=== PATIENT | male | born 1975 | race Caucasian/White ===

== ENCOUNTER → 2018-01-02 07:45 | Outpatient (CLI) | payer OTHER, SELFPAY ==
--- NOTE | 2018-01-02 08:15 | RAD_ITS ---
STUDY: ESOPHAGRAM REASON FOR EXAM: Male, 42 years old. Sore throat, irritation for 11 to 12 weeks, smoking history. FLUOROSCOPY TIME (if supplied): (0:18) minutes/seconds TECHNIQUE: An esophagram was performed. I was not present for the examination. A total of 10 images are performed. COMPARISON: None. FINDINGS: There may be narrowing within the proximal esophagus at C6-C7. The remainder of the esophagus appears grossly unremarkable. The visualized portions of the stomach are grossly unremarkable. RAD/Esophagus Only IMPRESSION: Question esophageal narrowing within the cervical esophagus. Please note that I was not the performing radiologist, and these images are best interpreted by the radiologist performing the examination, as there is real-time information on fluoroscopy that can help in the interpretation of this examination. Please correlate with the radiologist who performed this examination. This patient may benefit from upper endoscopy for further evaluation. Electronically Signed: Clarence Medeiros DO at 8:02 EDT Tel , Service support ,
== END ==
LOC: RAD 07:48
PROVIDERS: Family Provider Family Medicine; PCP Family Medicine; Visit Provider Otolaryngology
DX: R13.10 Dysphagia, unspecified (principal)
CPT/HCPCS: 74220

== ENCOUNTER 2018-02-20 10:12 | Day surgery (SDC) | payer OTHER, SELFPAY ==
[2018-02-20 10:37] VITALS: BP 139/95; PULSE 67; RESP 18; TEMP 36.6; O2SAT 97; BMI 34.5
--- NOTE | 2018-02-20 11:38 | PCM.OPRPT ---
Problem List (1) Gastro-esophageal reflux disease without esophagitis Status: Acute Report of Operation Date of Procedure: 02/20/18 Pre-Operative Diagnosis: k21.9 gastroesophageal reflux disease without esophagitis Post-Operative Diagnosis: Same Surgery/Procedure Performed:: 39257, [id number] esophagogastroduodenoscopy with 48 hour pH probe Type of Anesthesia:: MAC Description of Procedure: Patient was brought into the endoscopy suite placed in the left lateral decubitus position. Back of his throat was sprayed with benzocaine spray. A bite block was placed. He was given graded anesthesia. The scope was inserted into the back of the throat and directed down through the esophagus into the stomach and into the duodenum without difficulty operative findings: 1. Duodenum: Normal appearance no mass lesions no ulcerations no signs of any bleeding. 2. Stomach: Normal appearance no mass lesions minimal antral gastritis was identified. Retroflexion did not show a hiatal hernia. No signs of bleeding. 3. Esophagus: Z line was at 40 cm appeared normal no signs of bleeding no signs of mass lesions. The scope was withdrawn. PH probe was marked at 34 cm placed in the back of the throat directed down through to the appropriate markings. Proper suction was applied. PH probe was deployed. The scope was reinserted in the back of throat and down the esophagus and a photograph was obtained showing the pH probe to be properly attached to the lateral sidewall of the esophagus. Scope was withdrawn and the patient tolerated the procedure well. - Admit VTE Documentation VTE Present on Admission: No VTE Mechan Device Prophylaxis: None VTE Pharm Prophylaxis ordered?: No Reason prophylaxis not ordered:: Treatment Not Indicated
[2018-02-20 11:43] VITALS: BP 104/91; BP 139/95; PULSE 74; RESP 16; TEMP 36.1; O2SAT 94
[2018-02-20 11:49] VITALS: BP 124/85; BP 139/95; PULSE 71; RESP 16; O2SAT 95
[2018-02-20 11:54] VITALS: BP 114/86; BP 139/95; PULSE 71; RESP 16; O2SAT 96
[2018-02-20 11:59] VITALS: BP 125/83; BP 139/95; PULSE 70; RESP 16; TEMP 36.3; O2SAT 97
[2018-02-20 12:21] VITALS: BP 139/95
== END 2018-02-20 12:22 | disposition home or self-care (01) ==
LOC: EN 10:12 → AC 10:13
PROVIDERS: Family Provider Family Medicine; PCP Family Medicine; Visit Provider Surgery
PROC: (CPT 43235; principal; 2018-02-20 11:00)
DX: K21.9 Gastro-esophageal reflux disease without esophagitis (principal); E78.5 Hyperlipidemia, unspecified; Z87.891 Personal history of nicotine dependence
CPT/HCPCS: 43235; J7120

== ENCOUNTER → 2022-02-26 | Outpatient (CLI) | payer OTHER, SELFPAY ==
[2022-02-26 18:13] LABS: Absolute Lymphocyte Count 3.14 X10^3/uL (0.83-4.51); Absolute Neutrophil Count 4.9 X10^3/uL (2.0-7.7); Basophil# 0.08 X10^3/uL; Basophil% 0.9 % (0-1); Eosinophil# 0.18 X10^3/uL; Hematocrit 43.3 % (40-54); Hemoglobin 14.8 g/dL (13.0-16.5); Lymphocyte # 3.14 X10^3/ul (0.83-4.51); Mean Corp Hgb Conc 34.2 g/dL (32-36); Mean Corpuscular Volume 87.8 fL (80-94); Mean Platelet Vol. 9.9 fl (6.2-12.0); Monocyte# 0.69 X10^3/uL; Monocyte% 7.7 % (0-10); NRBC Flagged by Analyzer 0 % (0-5); Neutrophil # 4.86 X10^3/uL (2.7-7.7); Neutrophil % 54.1 % (47-70); Platelet Count 340 K/mm3 (150-450); RBC Distribution Width SD 41.7 fl (35.1-43.9); Red Blood Count 4.93 M/mm3 (4.6-6.2)
[2022-02-26 18:30] LABS: Erythrocyte Sedimentation Rate 13 mm/hr (0-20)
[2022-02-26 19:16] LABS: ALB/GLOB Ratio 1.2 RATIO (0.9-2.4); AST(SGOT) 23 U/L (15-37); Alanine Aminotransfer ALT/SGPT 49 U/L (16-61); Albumin, Serum 4.2 g/dL (3.2-5.0); Alkaline Phosphatase 74 U/L (45-117); Anion Gap 7 (5-15); BUN 15 mg/dL (7-18); BUN/Creat Ratio 15.5 RATIO (10-20); CPK Total, Creatine Kinase 214 U/L (39-308); CRP < 2.90 mg/L (0.0-3.0); Calcium,Total 9.2 mg/dL (8.5-10.1); Chloride 103 mmol/L (98-107); Creatinine, Serum 0.97 mg/dL (0.70-1.30); EST Glomerular Filtration Rate 88 mL/min (>60); Est Glom Filt Rate - Afr Amer 106 mL/min (>60); GGTP 18 U/L (15-85); Globulin 3.4 g/dL (2.2-4.2); Glucose 92 mg/dL (74-106); Protein, Total 7.6 g/dL (6.4-8.2); Rheumatoid Factor < 10.0 IU/mL (<15); Sodium Level 138 mmol/L (136-145)
[2022-02-27 08:31] LABS: Hepatitis B Surface Antibody Non-Reactive; Hepatitis B Surface Antigen Non-Reactive (Nonreactive); Hepatitis C Antibody Non-Reactive (Nonreactive)
[2022-03-04 18:03] LABS: Aldolase 4.8 U/L (3.3-10.3); CCP IgG Antibodies 5 units (0-19)
== END | disposition home or self-care (01) ==
LOC: MTLAB 14:24
PROVIDERS: PCP Family Medicine; Referring Provider Internal Medicine Rheumatology; Visit Provider Internal Medicine Rheumatology
DX: M06.4 Inflammatory polyarthropathy (principal); K76.0 Fatty (change of) liver, not elsewhere classified; M21.41 Flat foot [pes planus] (acquired), right foot; K21.9 Gastro-esophageal reflux disease without esophagitis; E78.5 Hyperlipidemia, unspecified; G47.33 Obstructive sleep apnea (adult) (pediatric)
CPT/HCPCS: 36415; 80053; 82085; 82550; 82977; 85025; 85652; 86140; 86200; 86431; 86706; 86803; 87340

== ENCOUNTER → 2022-05-16 | Outpatient (CLI) | payer OTHER, SELFPAY ==
[2022-05-16 18:01] LABS: Absolute Neutrophil Count 4.5 X10^3/uL (2.0-7.7); Basophil# 0.07 X10^3/uL; Basophil% 0.8 % (0-1); Eosinophil# 0.25 X10^3/uL; Eosinophils% 2.9 % (0-5); Hematocrit 40.9 % (40-54); Hemoglobin 13.7 g/dL (13.0-16.5); Lymphocyte % 37.2 % (19-41); Mean Corp Hgb Conc 33.5 g/dL (32-36); Mean Corpuscular Hgb 29.3 pg (27.0-32.0); Mean Corpuscular Volume 87.4 fL (80-94); Mean Platelet Vol. 9.9 fl (6.2-12.0); Monocyte# 0.53 X10^3/uL; Monocyte% 6.2 % (0-10); NRBC Flagged by Analyzer 0 % (0-5); Neutrophil # 4.53 X10^3/uL (2.7-7.7); Neutrophil % 52.7 % (47-70); Platelet Count 316 K/mm3 (150-450); RBC Distribution Width CV 13.2 % (11.6-14.6); RBC Distribution Width SD 41.2 fl (35.1-43.9); Red Blood Count 4.68 M/mm3 (4.6-6.2); White Blood Count 8.6 K/mm3 (4.4-11.0)
[2022-05-16 18:15] LABS: ALB/GLOB Ratio 1.2 RATIO (0.9-2.4); AST(SGOT) 28 U/L (15-37); Alanine Aminotransfer ALT/SGPT 61 U/L (16-61); Albumin, Serum 3.8 g/dL (3.2-5.0); Alkaline Phosphatase 73 U/L (45-117); Anion Gap 5 (5-15); BUN 13 mg/dL (7-18); BUN/Creat Ratio 12.5 RATIO (10-20); Calcium,Total 8.9 mg/dL (8.5-10.1); Chloride 107 mmol/L (98-107); Creatinine, Serum 1.04 mg/dL (0.70-1.30); EST Glomerular Filtration Rate 81 mL/min (>60); Est Glom Filt Rate - Afr Amer 98 mL/min (>60); Globulin 3.2 g/dL (2.2-4.2); Glucose 99 mg/dL (74-106); Potassium 3.8 mmol/L (3.5-5.1); Sodium Level 138 mmol/L (136-145)
== END | disposition home or self-care (01) ==
LOC: MTLAB 15:24
PROVIDERS: PCP Family Medicine; Referring Provider Internal Medicine Rheumatology; Visit Provider Internal Medicine Rheumatology
DX: M06.4 Inflammatory polyarthropathy (principal); K76.0 Fatty (change of) liver, not elsewhere classified; E78.5 Hyperlipidemia, unspecified
CPT/HCPCS: 36415; 80053; 85025

== ENCOUNTER → 2022-08-16 | Outpatient (CLI) | payer OTHER, SELFPAY ==
[2022-08-16 17:37] LABS: Absolute Lymphocyte Count 2.78 X10^3/uL (0.83-4.51); Absolute Neutrophil Count 4.7 X10^3/uL (2.0-7.7); Basophil# 0.07 X10^3/uL; Basophil% 0.8 % (0-1); Eosinophil# 0.19 X10^3/uL; Eosinophils% 2.2 % (0-5); Hematocrit 44.1 % (40-54); Hemoglobin 14.2 g/dL (13.0-16.5); Lymphocyte # 2.78 X10^3/ul (0.83-4.51); Lymphocyte % 32.8 % (19-41); Mean Corp Hgb Conc 32.2 g/dL (32-36); Mean Corpuscular Hgb 29.7 pg (27.0-32.0); Mean Corpuscular Volume 92.3 fL (80-94); Mean Platelet Vol. 10.1 fl (6.2-12.0); Monocyte# 0.75 X10^3/uL; Monocyte% 8.8 % (0-10); NRBC Flagged by Analyzer 0 % (0-5); Neutrophil # 4.66 X10^3/uL (2.7-7.7); Platelet Count 313 K/mm3 (150-450); RBC Distribution Width CV 13.6 % (11.6-14.6); Red Blood Count 4.78 M/mm3 (4.6-6.2); White Blood Count 8.5 K/mm3 (4.4-11.0)
[2022-08-16 18:09] LABS: ALB/GLOB Ratio 1.2 RATIO (0.9-2.4); AST(SGOT) 16 U/L (15-37); Alanine Aminotransfer ALT/SGPT 37 U/L (16-61); Albumin, Serum 3.9 g/dL (3.2-5.0); Alkaline Phosphatase 75 U/L (45-117); Anion Gap 7 (5-15); BUN 15 mg/dL (7-18); BUN/Creat Ratio 16.1 RATIO (10-20); Calcium,Total 8.8 mg/dL (8.5-10.1); Chloride 107 mmol/L (98-107); Creatinine, Serum 0.93 mg/dL (0.70-1.30); EST Glomerular Filtration Rate 92 mL/min (>60); Est Glom Filt Rate - Afr Amer 111 mL/min (>60); Globulin 3.2 g/dL (2.2-4.2); Glucose 76 mg/dL (74-106); Protein, Total 7.1 g/dL (6.4-8.2); Sodium Level 141 mmol/L (136-145)
== END | disposition home or self-care (01) ==
LOC: MTLAB 14:58
PROVIDERS: PCP Family Medicine; Referring Provider Internal Medicine Rheumatology; Visit Provider Internal Medicine Rheumatology
DX: M06.4 Inflammatory polyarthropathy (principal); K76.0 Fatty (change of) liver, not elsewhere classified; Z79.899 Other long term (current) drug therapy
CPT/HCPCS: 36415; 80053; 85025

== ENCOUNTER → 2022-10-10 | Outpatient (CLI) | payer OTHER, SELFPAY ==
[2022-10-10 18:12] LABS: Absolute Neutrophil Count 4.3 X10^3/uL (2.0-7.7); Basophil# 0.07 X10^3/uL; Basophil% 0.9 % (0-1); Eosinophil# 0.16 X10^3/uL; Hematocrit 41.4 % (40-54); Hemoglobin 13.4 g/dL (13.0-16.5); Lymphocyte % 33.3 % (19-41); Mean Corp Hgb Conc 32.4 g/dL (32-36); Mean Corpuscular Hgb 29.6 pg (27.0-32.0); Mean Corpuscular Volume 91.6 fL (80-94); Mean Platelet Vol. 9.9 fl (6.2-12.0); Monocyte# 0.63 X10^3/uL; Monocyte% 8.1 % (0-10); NRBC Flagged by Analyzer 0 % (0-5); Neutrophil # 4.32 X10^3/uL (2.7-7.7); Neutrophil % 55.3 % (47-70); Platelet Count 341 K/mm3 (150-450); RBC Distribution Width CV 13.8 % (11.6-14.6); RBC Distribution Width SD 45.8 fl (35.1-43.9); Red Blood Count 4.52 M/mm3 (4.6-6.2); White Blood Count 7.8 K/mm3 (4.4-11.0)
[2022-10-10 18:47] LABS: ALB/GLOB Ratio 1.1 RATIO (0.9-2.4); AST(SGOT) 25 U/L (15-37); Alanine Aminotransfer ALT/SGPT 51 U/L (16-61); Albumin, Serum 3.9 g/dL (3.2-5.0); Alkaline Phosphatase 73 U/L (45-117); Anion Gap 6 (5-15); BUN 16 mg/dL (7-18); BUN/Creat Ratio 15.7 RATIO (10-20); Calcium,Total 8.8 mg/dL (8.5-10.1); Chloride 107 mmol/L (98-107); Creatinine, Serum 1.02 mg/dL (0.70-1.30); EST Glomerular Filtration Rate 83 mL/min (>60); Est Glom Filt Rate - Afr Amer 100 mL/min (>60); Globulin 3.4 g/dL (2.2-4.2); Glucose 99 mg/dL (74-106); Potassium 3.9 mmol/L (3.5-5.1); Protein, Total 7.3 g/dL (6.4-8.2); Sodium Level 140 mmol/L (136-145)
== END | disposition home or self-care (01) ==
LOC: MTLAB 15:17
PROVIDERS: PCP Family Medicine; Referring Provider Internal Medicine Rheumatology; Visit Provider Internal Medicine Rheumatology
DX: M06.4 Inflammatory polyarthropathy (principal); Z79.899 Other long term (current) drug therapy
CPT/HCPCS: 36415; 80053; 85025

== ENCOUNTER → 2022-12-06 | Outpatient (CLI) | payer OTHER, SELFPAY ==
[2022-12-06 18:09] LABS: Absolute Lymphocyte Count 2.46 X10^3/uL (0.83-4.51); Absolute Neutrophil Count 4.3 X10^3/uL (2.0-7.7); Basophil# 0.06 X10^3/uL; Basophil% 0.8 % (0-1); Eosinophils% 1.3 % (0-5); Hematocrit 41.8 % (40-54); Hemoglobin 13.5 g/dL (13.0-16.5); Lymphocyte # 2.46 X10^3/ul (0.83-4.51); Lymphocyte % 32.9 % (19-41); Mean Corp Hgb Conc 32.3 g/dL (32-36); Mean Corpuscular Hgb 30.1 pg (27.0-32.0); Mean Corpuscular Volume 93.3 fL (80-94); Monocyte# 0.49 X10^3/uL; Monocyte% 6.6 % (0-10); NRBC Flagged by Analyzer 0 % (0-5); Neutrophil # 4.34 X10^3/uL (2.7-7.7); Platelet Count 363 K/mm3 (150-450); RBC Distribution Width CV 13.6 % (11.6-14.6); RBC Distribution Width SD 45.7 fl (35.1-43.9); Red Blood Count 4.48 M/mm3 (4.6-6.2); White Blood Count 7.5 K/mm3 (4.4-11.0)
[2022-12-06 18:48] LABS: ALB/GLOB Ratio 1.2 RATIO (0.9-2.4); AST(SGOT) 23 U/L (15-37); Alanine Aminotransfer ALT/SGPT 53 U/L (16-61); Albumin, Serum 3.8 g/dL (3.2-5.0); Alkaline Phosphatase 78 U/L (45-117); Anion Gap 5 (5-15); BUN 11 mg/dL (7-18); BUN/Creat Ratio 11.5 RATIO (10-20); Calcium,Total 8.3 mg/dL (8.5-10.1); Chloride 110 mmol/L (98-107); Creatinine, Serum 0.96 mg/dL (0.70-1.30); EST Glomerular Filtration Rate 89 mL/min (>60); Est Glom Filt Rate - Afr Amer 107 mL/min (>60); Globulin 3.2 g/dL (2.2-4.2); Glucose 106 mg/dL (74-106); Potassium 3.7 mmol/L (3.5-5.1); Sodium Level 142 mmol/L (136-145)
== END | disposition home or self-care (01) ==
LOC: MTLAB 15:28
PROVIDERS: PCP Family Medicine; Referring Provider Internal Medicine Rheumatology; Visit Provider Internal Medicine Rheumatology
DX: M06.4 Inflammatory polyarthropathy (principal); Z79.899 Other long term (current) drug therapy
CPT/HCPCS: 36415; 80053; 85025

== ENCOUNTER → 2023-02-19 | Outpatient (CLI) | payer OTHER, SELFPAY ==
[2023-02-19 17:38] LABS: Absolute Lymphocyte Count 2.77 X10^3/uL (0.83-4.51); Absolute Neutrophil Count 4.2 X10^3/uL (2.0-7.7); Basophil# 0.07 X10^3/uL; Basophil% 0.9 % (0-1); Eosinophil# 0.18 X10^3/uL; Eosinophils% 2.3 % (0-5); Hematocrit 39.8 % (40-54); Lymphocyte # 2.77 X10^3/ul (0.83-4.51); Lymphocyte % 35.2 % (19-41); Mean Corp Hgb Conc 32.7 g/dL (32-36); Mean Corpuscular Hgb 29.6 pg (27.0-32.0); Mean Corpuscular Volume 90.7 fL (80-94); Mean Platelet Vol. 9.9 fl (6.2-12.0); Monocyte# 0.59 X10^3/uL; Monocyte% 7.5 % (0-10); NRBC Flagged by Analyzer 0 % (0-5); Neutrophil # 4.21 X10^3/uL (2.7-7.7); Neutrophil % 53.6 % (47-70); Platelet Count 345 K/mm3 (150-450); RBC Distribution Width CV 12.9 % (11.6-14.6); RBC Distribution Width SD 41.9 fl (35.1-43.9); Red Blood Count 4.39 M/mm3 (4.6-6.2); White Blood Count 7.9 K/mm3 (4.4-11.0)
[2023-02-19 17:58] LABS: AST(SGOT) 25 U/L (15-37); Alanine Aminotransfer ALT/SGPT 39 U/L (16-61); Albumin, Serum 3.6 g/dL (3.2-5.0); Alkaline Phosphatase 74 U/L (45-117); Anion Gap 7 (5-15); BUN 11 mg/dL (7-18); Calcium,Total 8.6 mg/dL (8.5-10.1); Chloride 109 mmol/L (98-107); Creatinine, Serum 0.92 mg/dL (0.70-1.30); EST Glomerular Filtration Rate 93 mL/min (>60); Est Glom Filt Rate - Afr Amer 113 mL/min (>60); Globulin 3.5 g/dL (2.2-4.2); Glucose 90 mg/dL (74-106); Potassium 3.6 mmol/L (3.5-5.1); Protein, Total 7.1 g/dL (6.4-8.2); Sodium Level 141 mmol/L (136-145)
== END | disposition home or self-care (01) ==
PROVIDERS: PCP Family Medicine; Referring Provider Internal Medicine Rheumatology; Visit Provider Internal Medicine Rheumatology
DX: M06.4 Inflammatory polyarthropathy (principal); Z79.899 Other long term (current) drug therapy; K76.0 Fatty (change of) liver, not elsewhere classified
CPT/HCPCS: 36415; 80053; 85025

== ENCOUNTER → 2023-08-22 | Outpatient (CLI) | payer OTHER, SELFPAY ==
--- OUTSIDE RECORDS SUMMARY | 2023-08-22 17:57 | XMS RPT_ITS | CCD ---
Author Name Unknown Address [address] [place] [address] Organization [facility] Care Team Providers Care Information Assistant Name Role Phone Coleman Banerjee DO Kaylyn Primary Care Provider Unavailable Primary Care Provider Unavailabl e Coleman Banerjee DO Kaylyn Primary Care Provider Coleman Banerjee DO Kaylyn Primary Care Provider [phone] COLEMAN BANERJEE Attending Unavailable COLEMAN BANERJEE Primary Care Unavailable Medications Current Medications Medication Drug Class(es) Dates Sig (Normalized) Sig (Original) aspirin 81 mg oral tablet (8 sources) Platelet Aggregation Inhibitor, Nonsteroidal Anti-inflammatory Drug aspirin 81 MG ora l suspension Completed/Discontinued Medications Medication Drug Class(es) Dates Sig (Normalized) Sig (Original) atomoxetine 40 mg oral capsule (5 sources) Norepinephrine Reuptake Inhibitor Start: 10-23-2022 End: 08-21-2023 take 1 capsule by mouth once daily atomoxetine (Strattera) 40 MG capsule Take 1 capsule (40 mg) by mouth daily. Swallow capsule whole; do not open. If opened accidentally, do not touch eyes; wash hands immediately (product is an eye irritant). 30 capsule 5 10/23/2022 08/21/2023 Discontinued (Therapy completed) folic acid 1 mg oral tablet (6 sources) Start: 07-21-2022 End: 08-21-2023 folic acid (Folvite) 1 MG tablet methotrexate 2.5 mg oral tablet (6 sources) Folate Analog Metabolic Inhibitor Start: 07-21-2022 End: 08-21-2023 methotrexate 2.5 MG tablet Problems Active Problems Problem Classification Problem Date Documented Date Episodic/Chronic Disorders of lipid metabolism (11 sources) Hypercholesterolemia; Translations: [Pure hypercholesterolemia, unspecified] Onset: 11-29-2019 11-29-2019 Chronic Disorders usually diagnosed in infancy, childhood, or adolescence (7 sources) Attention deficit hyperactivity disorder, predominantly inattentive type; Translations: [Other specified behavioral and emotional disorders with onset usually occurring in childhood and adolescence] Onset: 10-23-2022 Chronic Esophageal disorders (9 sources) Gastroesophageal reflux disease; Translations: [Gastro-esophageal reflux disease without esophagitis] Onset: 11-05-2015 11-05-2015 Chronic Esophageal disorders (2 sources) Esophageal disorders; Translations: [Gastro-esophageal reflux disease with esophagitis, without bleeding] Onset: 05-02-2022 Other circulatory disease (7 sources) Raynaud's phenomenon; Translations: [Raynaud's syndrome without gangrene] Onset: 11-05-2015 11-05-2015 Chronic Other connective tissue disease (1 source) Tendinitis of right elbow; Translations: [Other enthesopathies, not elsewhere classified] 08-21-2023 Episodic Other liver diseases (7 sources) Steatosis of liver; Translations: [Fatty (change of) liver, not elsewhere classified] Onset: 07-21-2014 08-07-2017 Chronic Other non-traumatic joint disorders (1 source) Pain in elbow; Translations: [Pain in right elbow] Episodic Other screening for suspected conditions (not mental disorders or infectious disease) (1 source) Patient encounter status; Translations: [Encounter for screening for malignant neoplasm of prostate] 08-21-2023 Episodic Other upper respiratory disease (1 source) Nasal congestion; Translations: [Nasal congestion] 08-21-2023 Episodic Peripheral and visceral atherosclerosis (7 sources) Peripheral vascular disease; Translations: [Peripheral vascular disease, unspecified] Onset: 08-07-2017 08-07-2017 Chronic Superficial injury; contusion (1 source) Insect bite, nonvenomous, of upper arm; Translations: [Insect bite (nonvenomous) of unspecified upper arm, initial encounter] Episodic Past or Other Problems Problem Classification Problem Date Documented Da te Episodic/Chronic Other endocrine disorders (7 sources) Hypotestosteronis m; Translations: [Endocrine disorder, unspecified] Onset: 11-05-2015 11-05-2015 Episodic Residual codes; unclassified (7 sources) Family history of cancer of colon; Translations: [Family history of malignant neoplasm of digestive organs] Onset: 11-05-2015 Resolved: 08-21-2023 11-05-2015 Episodic Residual codes; unclassified (8 sources) Chews tobacco ; Translations: [Tobacco use] Onset: 11-05-2015 11-05-2015 Episodic Residual codes; unclassified (2 sources) Tobacco use; Translations: [Tobacco use] Onset: 05-02-2022 Episodic Screening and history of mental health and substance abuse codes (7 sources) Ex-smoker; Translations: [Personal history of nicotine dependence] Onset: 11-05-2015 11-05-2015 Episodic Results Test Name Value Interpretation Reference Range Facil ity Vital Signs Date Time Vital Sign Value Performing Clinician Faci lity 08-21-2023 16:01-0500 Body height 172.7 cm Coleman Banerjee [employer] Work Phone: [facility] 08-21-2023 16:01-0500 Body mass index (BMI) [Ratio] 36.04 kg/m2 Coleman Banerjee [employer] Work Phone: [facility] 08-21-2023 16:01-0500 Body temperature 97.11 [degF] Coleman Banerjee [employer] Work Phone: [facility] 08-21-2023 16:01-0500 Body weight 107.5 kg Coleman Banerjee DO Work Phone: [facility] 08-21-2023 16:01-0500 Diastolic blood pressure 78 mm[Hg] Coleman Banerjee [employer] Work Phone: [facility] 08-21-2023 16:01-0500 Heart rate 78 /min Coleman Banerjee DO Work Phone: [facility] 08-21-2023 16:01-0500 SaO2% (BldA) [Mass fraction] 96 % Coleman Banerjee [employer] Work Phone: [facility] 08-21-2023 16:01-0500 Systolic blood pressure 112 mm[Hg] Coleman Banerjee DO Work Phone: [facility] 10-23-2022 16:06-0400 Body height 172.7 cm Coleman Banerjee [employer] Work Phone: [facility] 10-23-2022 16:06-0400 Body mass index (BMI) [Ratio] 36.8 kg/m2 Coleman Banerjee DO Work Phone: [facility] [employer] 10-23-2022 16:06-0400 Body temperature 98.01 [degF] Coleman Banerjee DO Work Phone: [facility] 10-23-2022 16:06-0400 Body weight 109.77 kg Coleman Banerjee DO Work Phone: [facility] [employer] 10-23-2022 16:06-0400 Diastolic blood pressure 81 mm[Hg] Coleman Banerjee DO Work Phone: [facility] [employer] 10-23-2022 16:06-0400 Heart rate 84 /min Coleman Banerjee DO Work Phone: [facility] [employer] 10-23-2022 16:06-0400 SaO2% (BldA) [Mass fraction] 93 % Coleman Banerjee DO Work Phone: [facility] [employer] 10-23-2022 16:06-0400 Systolic blood pressure 118 mm[Hg] Coleman Banerjee DO Work Phone: [facility] [employer] 02-17-2022 10:12-0400 Body temperature 97.3 [degF] Dom Rizo SERVICE PERSON.NURSE TECHNICIAN Work Phone: [facility] 02-17-2022 10:12-0400 Body weight 108.77 kg Dom Rizo SERVICE PERSON.NURSE TECHNICIAN Work Phone: [facility] 02-17-2022 10:12-0400 Diastolic blood pressure 86 mm[Hg] Dom Darrius SERVICE PERSON.NURSE TECHNICIAN Work Phone: [facility] 02-17-2022 10:12-0400 Heart rate 87 /min Dom Darrius SERVICE PERSON.NURSE TECHNICIAN Work Phone: [facility] 02-17-2022 10:12-0400 Respiratory rate 20 /min Dom Rizo SERVICE PERSON.NURSE TECHNICIAN Work Phone: [facility] 02-17-2022 10:12-0400 SaO2% (BldA) [Mass fraction] 98 % Dom Darrius SERVICE PERSON.NURSE TECHNICIAN Work Phone: [facility] 02-17-2022 10:12-0400 Systolic blood pressure 126 mm[Hg] Dom King ALEENANURSE TECHNICIAN Work Phone: [facility] Encounters Encounter Date Encounter Type Care Provider Facility Start: 08-21-2023 End: 08-21-2023 Patient encounter procedure Coleman Patiño Chriss DO Work Phone: [facility] Start: 08-21-2023 End: 08-21-2023 Periodic preventive med est patient 40-64yrs Coleman Patiño Chriss DO Work Phone: [facility] Procedures Date Procedure Procedure Detail Performing Clinician Start: 02-28-2021 Radex elbow complete minimum 3 views Jeanette Cummings APRN - [employer] Work Phone: Start: 02-28-2021 Lipid 1996 panel - S betito or Plasma Coleman Banerjee DO Work Phone: Plan of Treatment Date Care Activity Detail Author Start: 2034 RSV Immunization aged 60 or older (1 - 1-dose 60+ series) RSV Immunization aged 60 or older (1 - 1-dose 60+ series) [facility] Start: 02-28-2026 Lipid panel Lipid Panel [facility] Start: 12-08-2024 Screening for malignant neoplasm of colon [facility] Start: 08-23-2024 End: 08-23-2024 Patient encounter procedure 08/23/2024 4:00 PM EST Office Visit [facility] [address] [place] [address] Coleman Banerjee DO [address] [place] [address] [facility] Start: 02-29-2024 Diabetes mellitus screening Diabetes Screening [facility] Start: 02-29-2024 Diabetes screen Diabetes screen [facility] Work Phone: Start: 01-06-2024 Zoster Vaccines (1 of 2) Zoster Vaccines (1 of 2) [facility] Start: 08-21-2023 End: 08-21-2023 Patient encounter procedure 08/21/2023 4:00 PM EST Office Visit [facility] [address] [place] [address] Coleman BanerjeeDO [address] [place] [address] [facility] Start: 08-21-2023 End: 08-21-2024 Lipid 1996 panel - Serum or Plasma Lipid panel Lab Routine Hypercholesterolemia Annual physical exam Expected: 08/21/2023 (Approximate), Expires: 08/21/2024 [facility] Work Phone: Immunizations Immunization Date Immunization Notes Care Provider Fa cility 04-06-2021 Pfizer SARS-CoV-2 Vaccination Coleman Banerjee DO Work Phone: [facility] [employer] 03-14-2021 Pfizer SARS-CoV-2 Vaccination Coleman Banerjee DO Work Phone: [facility] [employer] 05-29-2018 influenza, injectabl e, quadrivalent, contains preservative Jeanette Tokie SERVICE PERSON - [employer] Work Phone: [facility] [employer] 05-29-2018 influenza virus vacc ine, unspecified formulation Coleman Banerjee DO Work Phone: [facility] [employer] 06-10-2016 influenza, injectabl e, quadrivalent, contains preservative Jeanette Tokie SERVICE PERSON - [employer] Work Phone: [facility] [employer] Payers Date Payer Category Payer Private Health Insurance [facility] UMR CHOICE PLUS [id number] 2021-Present [phone] [address] [address] [place] [address] O [id number] 2020 Private Health Insurance [facility] UMR OPT [id number] 2020-Present [address] [address] [place] [address] Commercial [id number] 2020 Unknown [id number] Social History Date Type Detail Facility Start: 02-28-2021 End: 10-23-2022 Tobacco smoking status NHIS Former smoker [employer] Work Phone: End: 07-12-2013 History of tobacco use Current smoker [employer] Work Phone: End: 07-12-2013 History of tobacco use Cigarette Smoker [employer] Work Phone: Start: 02-28-2021 End: 10-23-2022 Tobacco use and exposure Current user [employer] Work Phone: History of tobacco use Chews Tobacco [employer] Work Phone: Start: 02-28-2021 End: 08-21-2023 Alcohol intake Current drinker of alcohol (finding) [employer] Work Phone: Start: 02-28-2021 End: 10-23-2022 Alcohol intake [employer] Work Phone: Start: 08-16-2020 History SDOH Alcohol Frequency 3 [employer] Work Phone: Start: 08-16-2020 History SDOH Social Connections Phone 2 [employer] Work Phone: Start: 08-16-2020 History SDOH Social Connections Get Together 1 [employer] Work Phone: Start: 08-16-2020 History SDOH Physica l Activity DPW 0 [employer] Work Phone: Start: 08-16-2020 History SDOH Stress 5 [facility] Work Phone: Start: 07-12-2015 Alcohol Comment 1 time a month [employer] Work Phone: Start: 1975 Sex Assigned At Male [facility] Work Phone: Start: 02-17-2022 Tobacco smoking stat us WYIS Smokes tobacco daily [facility] Start: 02-17-2022 Tobacco use and exposure Smokeless tobacco non-user [facility] Start: 1975 Sex Assigned At Not on file [facility] Start: 10-13-2022 End: 10-23-2022 Exposure to SARS-CoV-2 (event) Not sure [facility] Start: 10-23-2022 Tobacco use panel [facility] Start: 05-09-2022 Gender identity Identifies as male gender (finding) [facility] Start: 05-09-2022 Sexual orientation Heterosexual (fin ding) [facility] Clinical Notes 02-17-2022 to 08-21-2023 Coleman Banerjee DO - 08/21/2023 4:00 PM ESTPatient InstructionsTelephone Encounter - [place] - 08/12/2023 8:05 AM ESTTelephone Encounter - [place] - 08/12/2023 8:05 AM EST Note Date & Type Note Facility 08-21-2023 History of Presen t illness Narrative Images from the original note were not included. [facility] [address] [place] [address] [address] [facility] [address] Visit type: Established Patient Reason for Visit: Annual Exam (Physical for work) Assessment / Plan: Brent was seen today for annual exam. Diagnoses and all orders for this visit: Annual physical exam (Primary) - Lipid panel; Future - PSA Total (Screening); Future - Lipid panel - PSA Total (Screening) Gastroesophageal reflux disease with esophagitis without hemorrhage Comments: Stable, Protonix and avoidance measures. EGD in 5 years Hypercholesterolemia Comments: Recurrent, probable statin therapy after lab Orders: - Lipid panel; Future - Lipid panel Prostate cancer screening - PSA Total (Screening); Future - PSA Total (Screening) Right elbow tendonitis Comments: Recurrent, substantial spur on x-ray. he he will think about orthopedic referral. Conservative measures Nasal congestion Comments: Recurrent, trial of Astelin possible ENT referral Other orders - pantoprazole (ProtoNix) 40 MG EC tablet; Take 1 tablet (40 mg) by mouth daily. - azelastine (Astelin) 0.1 % nasal spray; Administer 1 spray into each nostril 2 times daily. Use in each nostril as directed Subjective: Patient ID: Brent Nava is a 48 y.o. male. HPI annual physical for patient with history of hyperlipidemia and acid reflux. Overall feeling well. No change in family history. Father did have prostate cancer. Patient due for ROBERT and PSA. Presently off methotrexate for the last 5 months. He felt unchanged on that med and does not think he has inflammatory arthritis. Not really impressed with rheumatology consultations. Did get relief with a right shoulder injection. Review of Systems weight up a little bit. No recent earache or sore throat or cough. Using nicotine pouches rather than in situ. No oral lesions. Denies exertional chest pain jaw pain or arm pain. No cough or congestion. No wheezing. No heartburn or dysphagia. No early satiety. No melena or blood. No bowel changes. No constipation or diarrhea. Cologuard up-to-date No nocturia hesitancy postvoid dribbling. No dysuria or hematuria. Right elbow is painful in the posterior aspect. Also on bilateral forearms. No morning synovitis. Works hard and occasionally his shoulders hurt as well. Rare use of ibuprofen. Some nasal congestion on CPAP. Would like to know options. Taking OTC Sudafed spray No Known Allergies Current Outpatient Medications on File Prior to Visit Medication Sig Dispense Refill aspirin 81 MG oral suspension [DISCONTINUED] pantoprazole (ProtoNix) 40 MG EC tablet Take 1 tablet (40 mg) by mouth daily. 90 tablet 1 [DISCONTINUED] atomoxetine (Strattera) 40 MG capsule Take 1 capsule (40 mg) by mouth daily. Swallow capsule whole; do not open. If opened accidentally, do not touch eyes; wash hands immediately (product is an eye irritant). 30 capsule 5 [DISCONTINUED] folic acid (Folvite) 1 MG tablet [DISCONTINUED] methotrexate 2.5 MG tablet No current facility-administered medications on file prior to visit. Patient Active Problem List Diagnosis Tobacco chew use Hypotestosteronism Ex-smoker GERD (gastroesophageal reflux disease) Raynaud phenomenon Hypercholesterolemia Fatty liver PVD (peripheral vascular disease) (HCC) Attention deficit disorder (ADD) without hyperactivity Social History Tobacco Use Smoking status: Former Types: Cigarettes Quit date: 07/12/2013 Years since quittin.1 Smokeless tobacco: Current Substance Use Topics Alcohol use: Yes Alcohol/week: 10.0 standard drinks of alcohol Past Surgical History: Procedure Laterality Date APPENDECTOMY 2013 MYRINGOTOMY AND TYMPANOSTOMY TUBE PLACEMENT (HISTORICAL) Bilateral SEPTOPLASTY 2010 [place] TONSILLECTOMY AND ADENOIDECTOMY (HISTORICAL) N/A UPPER GASTROINTESTINAL ENDOSCOPY 02/2018 [place] UPPER GASTROINTESTINAL ENDOSCOPY 2015 [place]- chronic gastritis VASECTOMY 2013 Family History Problem Relation Name Age of Onset Heart disease Mother CHF due to MV ds.and RF age 55 Hypertension Father Prostate cancer Father 68 alive in mid 70s No Known Problems Brother Huan older No Known Problems Maternal Grandmother No Known Problems Maternal Grandfather younger No Known Problems Paternal Grandmother in 60s No Known Problems Paternal Grandfather old age Objective: BP 112/78 Pulse 78 Temp 36.2 C (97.1 F) (Temporal) Ht 5' 8 (1.727 m) Wt 237 lb (108 kg) SpO2 96% BMI 36.04 kg/m Physical Exam Constitutional: General: He is not in acute distress. Appearance: Normal appearance. He is obese. He is not ill-appearing. HENT: Right Ear: Tympanic membrane normal. Left Ear: Tympanic membrane normal. Nose: Nose normal. No congestion or rhinorrhea. Comments: No nasal masses or septal deviation Mouth/Throat: Pharynx: Oropharynx is clear. No oropharyngeal exudate or posterior oropharyngeal erythema. Eyes: General: No scleral icterus. Conjunctiva/sclera: Conjunctivae normal. Neck: Vascular: No carotid bruit. Cardiovascular: Rate and Rhythm: Normal rate and regular rhythm. Heart sounds: Normal heart sounds. No murmur heard. No gallop. Pulmonary: Effort: Pulmonary effort is normal. No respiratory distress. Breath sounds: Normal breath sounds. No wheezing or rhonchi. Abdominal: General: Bowel sounds are normal. There is no distension. Palpations: Abdomen is soft. There is no mass. Tenderness: There is no abdominal tenderness. Hernia: No hernia is present. Comments: No hepatosplenomegaly masses bruits or ascites. Femoral pulses are good Genitourinary: Penis: Normal. No discharge. Testes: Normal. Prostate: Normal. Comments: Normal genitalia, no scrotal masses or pain. No hernias. ROBERT revealed normal sphincter tone and no anal or rectal masses. Prostate exam revealed no nodules. Musculoskeletal: General: Tenderness and deformity present. Normal range of motion. Cervical back: Neck supple. Right lower leg: No edema. Left lower leg: No edema. Comments: Prominence of the posterior olecranons bilaterally. However no weakness or restricted range of motion. No joint effusion. Biceps and triceps intact -no signs of synovitis of any joints. Lymphadenopathy: Cervical: No cervical adenopathy. Skin: General: Skin is warm. Findings: No lesion or rash. Neurological: General: No focal deficit present. Mental Status: He is alert and oriented to person, place, and time. Deep Tendon Reflexes: Reflexes normal. Psychiatric: Mood and Affect: Mood normal. Behavior: Behavior normal. documented in this encounter [facility] 08-21-2023 Instructions Coleman Banerjee DO - 08/21/2023 4:00 PM EST Call for orthopedic referral for elbow evaluation if no better documented in this encounter [facility] 08-12-2023 Telephone encount er Note Last OV:10/23/22 Scheduled:08/21/23 [facility] 08-12-2023 Miscellaneous Notes Formattin g of this note might be different from the original. Last OV:10/23/22 Scheduled:08/21/23 documented in this encounter [facility] 11-06-2022 Telephone encount er Note Images from the original note were not included. Placed call to complete PA . Was told Pas can not be completed over the phone. Must be completed online. PA completed. [facility] 11-06-2022 Miscellaneous Notes Formattin g of this note might be different from the original. Images from the original note were not included. Placed call to complete PA . Was told Pas can not be completed over the phone. Must be completed online. PA completed. Called to complete Jennifer for medication. Was told that was the wrong number and given to complete PA for medication Called to complete PA for medication. Told that was wrong number and given to call to complete PA. Spoke with pharmacy - given to call, to complete PA for medication Auth form faxed to ins Message released to patient as written. Patient's further questions if applicable: Pt was advised a prior auth is not needed; per pt he called and was advised a prior auth is needed. Please follow up to advise. Were all questions from office addressed or relayed to the patient from encounter: Yes Per cover my meds: PA REQUIREMENT Strattera 40MG capsules Not Required Atomoxetine 40 Mg Cap Not Required Please assist Name of caller: Brent Contact phone number: [phone] Relationship to Patient: pt Provider: Practice: [facility] Chief Complaint/Reason for Call: Pt is wondering about the prior auth for atomoxetine (Strattera) If it has been cleared or not please advise Best time of day caller can be reached: any Patient advised that office/PCP has 24-48 business hours to return their call: No documented in this encounter [facility] 11-06-2022 Telephone encount er Note Called to complete Jennifer for medication. Was told that was the wrong number and given to complete PA for medication [facility] 11-06-2022 Telephone encount er Note Called to complete PA for medication. Told that was wrong number and given to call to complete PA. [facility] 11-06-2022 Telephone encount er Note Spoke with pharmacy - given to call, to complete PA for medication [facility] 11-04-2022 Telephone encount er Note Auth form faxed to ins [facility] 11-04-2022 Telephone encount er Note Message released to patient as written. Patient's further questions if applicable: Pt was advised a prior auth is not needed; per pt he called and was advised a prior auth is needed. Please follow up to advise. Were all questions from office addressed or relayed to the patient from encounter: Yes [facility] 11-04-2022 Telephone encount er Note Per cover my meds: PA REQUIREMENT Strattera 40MG capsules Not Required Atomoxetine 40 Mg Cap Not Required [facility] 11-04-2022 Telephone encount er Note Please assist [facility] 11-04-2022 Telephone encount er Note Name of caller: Brent Contact phone number: [phone] Relationship to Patient: pt Provider: Practice: [facility] Chief Complaint/Reason for Call: Pt is wondering about the prior auth for atomoxetine (Strattera) If it has been cleared or not please advise Best time of day caller can be reached: any Patient advised that office/PCP has 24-48 business hours to return their call: No [facility] 10-23-2022 History of Presen t illness Narrative Images from the original note were not included. [facility] [address] [facility] [id number] Visit type: Established Patient Reason for Visit: Follow-up (Med check /Would like to talk about getting addreal. ) Assessment / Plan: Brent was seen today for follow-up. 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 Strattera, possible neurology referral for stimulant if necessary Hypercholesterolemia Tobacco chew use Gastroesophageal reflux disease with esophagitis without hemorrhage Comments: Stable, continue Protonix, anticipate EGD this fall Other orders - pantoprazole (ProtoNix) 40 MG EC tablet; Take 1 tablet (40 mg) by mouth daily. - atomoxetine (Strattera) 40 MG capsule; Take 1 capsule (40 mg) by mouth daily. Swallow capsule whole; do not open. If opened accidentally, do not touch eyes; wash hands immediately (product is an eye irritant). Subjective: Patient ID: Brent Nava is a 47 y.o. male. 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 No change in the quality of the symptoms. Might be getting repeat EGD in February. No early satiety breakthrough symptoms melena or blood. No bowel changes. Does have occasional chewing tobacco substitution. He presents mostly today to discuss possible treatment for attention deficit disorder. Review of Systems he states for many years he felt he had attention issues. He was given a few day trial with stimulants as a teenager. His father did not like the stigma of those meds and they were stopped. He states he often these chores and completed home. His does not test him driving because his concentration is poor. Recently new position at work requires more concentration and is worried he will not successfully completed. He is only been once. No other lifestyles of excessive alcohol drugs or other substance abuse issues. No history of multiple job losses. Does has a hard time concentrating and feels he would be better treated with possible meds. Denies any true depressive symptoms. Some improvement in his joint pains with the methotrexate. No Known Allergies Current Outpatient Medications on File Prior to Visit Medication Sig Dispense Refill aspirin 81 MG oral suspension folic acid (Folvite) 1 MG tablet methotrexate 2.5 MG tablet [DISCONTINUED] pantoprazole (ProtoNix) 40 MG EC tablet Take 1 tablet by mouth daily. No current facility-administered medications on file prior to visit. Patient Active Problem List Diagnosis Tobacco chew use Hypotestosteronism Ex-smoker GERD (gastroesophageal reflux disease) Family history of colon cancer Raynaud phenomenon Hypercholesterolemia Fatty liver PVD (peripheral vascular disease) (HCC) Attention deficit disorder (ADD) without hyperactivity Social History Tobacco Use Smoking status: Former Types: Cigarettes Quit date: 07/12/2013 Years since quittin.2 Smokeless tobacco: Current Substance Use Topics Alcohol use: Yes Alcohol/week: 10.0 standard drinks Past Surgical History: Procedure Laterality Date APPENDECTOMY 2013 MYRINGOTOMY AND TYMPANOSTOMY TUBE PLACEMENT (HISTORICAL) Bilateral SEPTOPLASTY 2009 [place] TONSILLECTOMY AND ADENOIDECTOMY (HISTORICAL) N/A UPPER GASTROINTESTINAL ENDOSCOPY 02/2018 [place] UPPER GASTROINTESTINAL ENDOSCOPY 08/2015 [place]- chronic gastritis VASECTOMY 2012 Family History Problem Relation Name Age of Onset Heart disease Mother CHF due to MV ds.and RF age 55 Hypertension Father No Known Problems Brother Prostate cancer Father 68.00 alive in mid 70s Objective: BP 118/81 (BP Location: Left arm, Patient Position: Sitting, BP Cuff Size: Adult long) Pulse 84 Temp 36.7 C (98 F) (Temporal) Ht 5' 8 (1.727 m) Wt 242 lb (110 kg) SpO2 93% BMI 36.80 kg/m Physical Exam Alert and cooperative. Has good insight eye contact and is well-groomed. Not restless. No JVD or neck masses. Reflexes normal. Heart is regular. Lungs are clear. Abdomen unremarkable. No hepatosplenomegaly masses or bruits. Pulses are good. Extremities are pink without edema. Reviewed recent rheumatology consultation and lab. documented in this encounter [facility] [employer] 02-17-2022 History of Presen t illness Narrative Images from the original note were not included. Subjective HPI HPI Brent Nava is a 47 year old male who presents today for CC of insect bites of arms, legs, abdomen, face/head. This started 1 week ago. Has tried otc medication for relief. Symptoms are worsened by nothingkonwn. Risk factors recent vacation in [place], no other family members present with rash. Denies fever or visible insects. .Patient presents with: Insect Bite: arms, hands, waistline x1 week No past medical history on file. No past surgical history on file. ALLERGIES Patient has no known allergies. MEDICATIONS pantoprazole DR (PROTONIX) 40 mg tablet Take 1 tablet by mouth once daily. aspirin, enteric coated (ASPIRIN, ENTERIC COATED) 81 mg EC tablet Take 81 mg by mouth once daily. predniSONE (DELTASONE) 20 mg tablet Take 2 tablets by mouth once daily for 5 days. triamcinolone acetonide (KENALOG) 0.1 % cream Apply 1 application to affected area three times daily for 10 days. Apply sparingly to area for rash/itching. permethrin (ELIMITE) 5 % cream Apply 1 application to affected area one time only for 1 dose. massage into skin from neck to feet, leave on 8-12hrs, wash off; Info: repeat 2wks if live mites persist. Itching may persist after effective treatment. cephALEXin (KEFLEX) 500 mg capsule Take 1 capsule by mouth three times daily for 7 days. No family history on file. Social History Tobacco Use Smoking status: Current Every Day Smoker Smokeless tobacco: Never Used Substance Use Topics Alcohol use: Not on file Drug use: Not on file ROS Objective Blood pressure 126/86, pulse 87, temperature 36.3 C (97.3 F), resp. rate 20, weight 108.8 kg (239 lb 12.8 oz), SpO2 98 %. Physical Exam Constitutional: General: He is not in acute distress. Appearance: He is not toxic-appearing or diaphoretic. HENT: Head: Normocephalic and atraumatic. Pulmonary: Effort: Pulmonary effort is normal. No accessory muscle usage or respiratory distress. Skin: Neurological: Mental Status: He is alert and oriented to person, place, and time. ASSESSMENT/PLAN: 1. Insect bite (nonvenomous) of unspecified upper arm, initial encounter - ICD9: 912.4, E906.4, ICD10: S40.869A, W57.XXXA Unclear etiology Start permetherin, prednisone, triamcinolone today If s/s persist/worsen, fill atb and f/u with cement mixer driver. - PERMETHRIN 5 % TOPICAL CREAM - CEPHALEXIN 500 MG CAPSULE Agrees to plan Dom Rizo APRN.[place] documented in this encounter [facility] documented in this encounter [facility] Work Phone: Evaluation note* Diagnosis Insect bite (nonvenomous) of unspecified upper arm, initial encounter- Primary [facility] Diagnosis Attention deficit disorder (ADD) without hyperactivity- Primary Hypercholesterolemia Pure hypercholesterolemia Tobacco chew use Gastroesophageal reflux disease with esophagitis without hemorrhage [facility] Annual physical exam- Primary Routine general medical examination at a health care facility Gastroesophageal reflux disease with esophagitis without hemorrhage Hypercholesterolemia Pure hypercholesterolemia Prostate cancer screening Special screening for malignant neoplasm of prostate Right elbow tendonitis Nasal congestion Other diseases of nasal cavity and sinuses documented in this encounter [facility] Advance Directives Documents on File Type Date Recorded Patient [employer] Director Expl anation ACP-Advance Directive ACP-Power of Union Contract Representative Summary Purpose Family History No Family History Records FoundNo Family History Records Found Additional Source Comments (unrecognized sect ion and content) No Status Records FoundNo Status Records Found INFORMATION SOURCE (unrecogn ized section and content) DATE CREATED AUTHOR AUTHOR'S ORGANIZ ATION 08/13/2023 [facility] Source Comments (unrecognize d section and content) In the event this informatio n is protected by the Federal Confidentiality of Alcohol and Drug Abuse Patient Records regulations: The Federal rules restrict any use of the information to criminally investigate or prosecute any alcohol or drug abuse patient.[facility] Reason for Visit (unrecogniz ed section and content) Reason Comments Follow-up Med check Would like to talk about getting addreal. Reason Onset Date Comments prior auth for atomoxetine (Strattera) 3 Reason Onset Date Comments Med Refill 08/11/2023 Reason Comments Annual Exam Physical for work Care Teams (unrecognized sec tion and content) Information Assistant Relationship Specialty Start Date End Date Coleman Banerjee DO [address] [place] [id number] PCP - General 07/12/15 Information Assistant Relationship Specialty Start Date End Date Coleman Banerjee DO [address] [place] [address] PCP - General 07/12/15 Information Assistant Relationship Specialty Start Date End Date Colemna Banerjee DO [address] [place] [address] PCP - General 07/12/15 FOR RECORDS PERTAINING TO PATIENTS WHO ARE OR HAVE BEEN ENROLLED IN A CHEMICAL DEPENDENCY/SUBSTANCEABUSE PROGRAM, SOME INFORMATION MAY BE OMITTED. This clinical summary was aggregated from multiple sources. Caution should be exercised in using it in the provision of clinical care. This summary normalizes information from multiple sources, and as a consequence, information in this document may materially change the coding, format and clinical context of patient data. In addition, data may be omitted in some cases. CLINICAL DECISIONS SHOULD BE BASED ON THE PRIMARY CLINICAL RECORDS. [facility]. provides no warranty or guarantee of the accuracy or completeness of information in this document.
[2023-08-22 18:26] LABS: Cholesterol 202 mg/dL (200); High Density Lipoprotein 43 mg/dL; PSA,Total - Annual Screen 1.16 ng/mL (0.00-4.00); Triglycerides 54 mg/dL; Very Low Density Lipoprotein 11 mg/dL (5-40)
== END | disposition home or self-care (01) ==
LOC: MTLAB 15:24
PROVIDERS: PCP Family Medicine; Referring Provider Family Medicine; Visit Provider Family Medicine
DX: Z00.00 Encounter for general adult medical examination without abnormal findings (principal); Z12.5 Encounter for screening for malignant neoplasm of prostate; E78.00 Pure hypercholesterolemia, unspecified
CPT/HCPCS: 36415; 80061; 84153; G0103